=== PATIENT | female | born 1955 | race African-American/Black ===

== ENCOUNTER 2017-09-19 15:00 | Emergency (ER) | payer MEDICARE, MEDICAID ==
[~2017-09-19] VITALS: Ht 167.6 cm; Wt 61.0 kg
[2017-09-19] MEDS ORDERED: SODIUM CHLORIDE 0.9% 1,000 ML IV ONE (15:26)
[2017-09-19] MEDS ORDERED: ONDANSETRON HCL 4MG/2ML VIAL IV ONE (15:45)
[2017-09-19 16:00] LABS: CLARITY URINE CLEAR (CLEAR); COLOR URINE YELLOW (YELLOW); GLUCOSE URINE NEGATIVE (NEGATIVE); KETONES URINE NEGATIVE (NEGATIVE); LEUKOCYTE ESTERASE URINE NEGATIVE (NEGATIVE); NITRITE URINE NEGATIVE (NEGATIVE); OCCULT BLOOD URINE NEGATIVE (NEGATIVE); PH URINE 8.5 (4.5-8.0); PROTEIN URINE NEGATIVE (NEGATIVE); SPECIFIC GRAVITY URINE 1.015 (1.005-1.030); UROBILINOGEN URINE 0.2 E.U./dL (0.2-1.0)
[2017-09-19 16:11] LABS: BASOPHILS % 0.7 % (0.0-2.0); EOSINOPHILS % 0.9 % (0.0-5.0); HEMATOCRIT. 37.8 % (36.0-48.0); HEMOGLOBIN. 12.6 g/dL (12.0-16.0); LYMPHOCYTES % 24.6 % (20.0-50.0); MEAN CORPUSCULAR HEMOGLOBIN 30.8 pg (28.0-32.0); MEAN CORPUSCULAR VOLUME 92.2 fL (81.0-99.0); MEAN PLATELET VOLUME 7.5 fl (7.4-10.4); MONOCYTES % 8.1 % (2.0-8.0); NEUTROPHILS % 65.7 % (40.0-76.0); PLATELET 248 x1000/uL (130-400); RED BLOOD CELL COUNT 4.11 mill/uL (4.2-5.4); RED CELL DISTRIBUTION WIDTH 14.7 % (11.6-14.6)
[2017-09-19 16:16] LABS: CHLORIDE 109 mEq/L (98-107)
[2017-09-19 16:18] LABS: INR 1.1; PROTHROMBIN TIME 10.9 sec (9.4-11.6)
[2017-09-19 16:23] LABS: CARBON DIOXIDE 27 mEq/L (21-32)
[2017-09-19 16:26] LABS: TROPONIN I < 0.02 ng/mL (0.00-0.04)
[2017-09-19 16:50] VITALS: BP 126/64
== END 2017-09-19 17:01 | disposition home or self-care (01) ==
LOC: ER 15:23
DX: E86.0 Dehydration (principal); I10 Essential (primary) hypertension; F17.210 Nicotine dependence, cigarettes, uncomplicated; R19.7 Diarrhea, unspecified
CPT/HCPCS: 36415; 80053; 81003; 83880; 84484; 85025; 85610; 93005; 99285; 99406; J7030

== ENCOUNTER 2024-01-22 08:43 | Emergency (ER) | payer MEDICARE, MEDICAID ==
[~2024-01-22] VITALS: Ht 165.1 cm; Wt 60.0 kg
[2024-01-22 08:55] VITALS: TEMP 98.5; O2SAT 100
[2024-01-22] MEDS ORDERED: IBUP-2028 MT (09:26)
[2024-01-22] MEDS ORDERED: METH-653 MT (09:26)
[2024-01-22] MEDS ORDERED: IBUPROFEN 800MG TABLET PO ONE (09:30)
[2024-01-22] MEDS: IBUPROFEN 400MG TABLET PO NR (09:51)
[2024-01-22 10:00] VITALS: BP 111/78; PULSE 79; RESP 12
== END 2024-01-22 10:01 | disposition home or self-care (01) ==
LOC: ER 08:43
DX: M79.10 Myalgia, unspecified site (principal); I10 Essential (primary) hypertension
CPT/HCPCS: 99283